=== PATIENT | female | born 1980 | race Caucasian/White ===

== ENCOUNTER → 2017-05-26 | Outpatient (CLI) | payer OTHER | LOC: SLR 11:00 | PROVIDERS: ATTEND Specialist | DX: G47.30 Sleep apnea, unspecified (principal); E66.9 Obesity, unspecified | CPT/HCPCS: 95810 ==

== ENCOUNTER 2017-06-18 11:00 | Outpatient (CLI) | payer OTHER | END 2017-06-18 11:01 | disposition home or self-care (01) | LOC: SLR 11:00 | PROVIDERS: ATTEND Specialist | DX: G47.33 Obstructive sleep apnea (adult) (pediatric) (principal); E66.9 Obesity, unspecified | CPT/HCPCS: 95811 ==

== ENCOUNTER 2017-08-13 06:10 | Day surgery (SDC) | payer OTHER ==
[2017-08-13] MEDS ORDERED: WATER FOR IRRIG STERILE IR ONE (07:19)
[2017-08-13] MEDS ORDERED: HURRICAINE ONE 20% TOPICAL SPRAY MM ×2 (07:21→08:13)
--- NOTE | 2017-08-13 07:37 | Anesthesia Consultation ---
Anesthesia Consult and Med Hx Date of service: 08/13/17 - Airway Anesthetic Teeth Evaluation: Good ROM Head & Neck: Adequate Mental/Hyoid Distance: Adequate Mallampati Class: Class I Intubation Access Assessment: Good - Pulmonary Exam CTA: Yes - Cardiac Exam Cardiac Exam: RRR - Pre-Operative Health Status ASA Pre-Surgery Classification: ASA3 Proposed Anesthetic Plan: MAC - Pulmonary Hx Smoking: Yes (Quit 2007 ) Hx Asthma: Yes (Last inhaler use 1 month ago ) Hx Sleep Apnea: Yes (CPAP) - Central Nervous System Hx Back Pain: Yes - Other Systems Hx Obesity: Yes
--- NOTE | 2017-08-13 07:37 | Anesthesia Day of Surgery ---
Anesthesia Day of Surgery - Day of Surgery Patient Examined: Yes Patient H&P Reviewed: Yes Patient is NPO: Yes
[2017-08-13] MEDS ORDERED: DIPRIVAN 10 MG/ML IV ONE (07:40)
[2017-08-13] MEDS ORDERED: NACL 0.9% 1000 ML 1,000 ML IV SCH (08:00)
--- NOTE | 2017-08-13 08:03 | Operative Report ---
Operative Report Operative Report: OPERATIVE REPORT - EGD DATE 08/13/17 SURGERY: Upper endoscopy. SURGEON: Ashley Morris M.D. [employer] ACCESS MANAGEMENT ARCHITECT: Samaria Gilliland DO PRE OP DX: dyspepsia POST OP DX: dyspepsia TYPE OF ANESTHESIA: MAC. ESTIMATED BLOOD LOSS: None. COMPLICATIONS: None. SPECIMENS REMOVED: None. FINDINGS: 1. intact michelle fundoplication wrap INDICATIONS:INDICATION FOR PROCEDURE: Patient is a 37-year-old female with a long history of morbid obesity. She is planned to have a weight loss procedure and is here for preoperative planning EGD. PROCEDURE DETAILS: After consent was reviewed, patient was taken back to the operating room where patient was placed in the left lateral decubitus position and a bite block was placed in the mouth. After a time-out was called, MAC anesthesia was initiated. I then passed the endoscope into her oropharynx, into her esophagus, visualized the entire esophagus, which was all within normal limits. I then visualized the stomach and the first portion of the duodenum and there were no abnormalities I could clearly visualize. I then retroflexed the scope in the stomach and visualized fundus of the stomach. The previous michelle fundoplication wrap was intact. no hiatal hernia could be visualized. I then desufflated the stomach and removed the endoscope. Patient tolerated procedure well and was transferred to recovery room in good and stable condition.
--- NOTE | 2017-08-13 08:05 | Discharge Summary ---
Providers - Providers Date of discharge: 08/13/17 Attending physician: UZIEL MARTÍNEZ Primary care physician: SYLVIA HOLLOWAY Hospitalization Condition: Good Procedures: egd Hospital course: pt had uneventful egd as part of pre-op planning for up coming bariatric surgery Disposition: DC-01 TO HOME OR SELFCARE Core Measure Documentation - Palliative Care Palliative Care/ Comfort Measures: Not Applicable - Core Measures Any of the following diagnoses?: none Exam - Physical Exam Narrative exam: unchanged from pre-op - Constitutional Vitals: Temp Pulse Resp BP Pulse Ox 97.8 F 77 18 122/81 96 08/13/17 07:20 08/13/17 07:20 08/13/17 07:20 08/13/17 07:20 08/13/17 07:20 Plan Activity: no restrictions Weight Bearing Status: Weight Bear as Tolerated Diet: regular Follow up with: SYLVIA HOLLOWAY MD [Primary Care Provider] - 7 Days
[2017-08-13 08:54] VITALS: BP 121/82
--- NOTE | 2017-08-13 14:22 | Post Anesthesia Evaluation ---
- Post Anesthesia Evaluation Patient Participated: Yes Airway Patent: Yes Stable Respiratory Function: Yes Nausea/Vomiting: No Temp > 96.8F: Yes Pain Manageable: Yes Adequeate Hydration: Yes Anesthesia Complications: No
== END 2017-08-13 06:11 | disposition home or self-care (01) ==
LOC: GIO 06:10
PROVIDERS: ATTEND Surgery
DX: K21.9 Gastro-esophageal reflux disease without esophagitis (principal); E66.01 Morbid (severe) obesity due to excess calories; J45.909 Unspecified asthma, uncomplicated; G47.30 Sleep apnea, unspecified; F32.9 Major depressive disorder, single episode, unspecified; F41.9 Anxiety disorder, unspecified; Z68.43 Body mass index [BMI] 50.0-59.9, adult; Z98.890 Other specified postprocedural states; Z87.891 Personal history of nicotine dependence; Z99.89 Dependence on other enabling machines and devices
CPT/HCPCS: 81025; J2704; J7030

== ENCOUNTER 2017-08-24 05:50 | Inpatient (IN) | payer OTHER ==
[2017-08-24] MEDS ORDERED: NACL BACTERIOSTATIC INFILTRATI ONE (06:41)
[2017-08-24] MEDS ORDERED: NACL 0.9% 1000 ML 1,000 ML ONE (06:55)
--- NOTE | 2017-08-24 06:58 | Anesthesia Day of Surgery ---
Anesthesia Day of Surgery - Day of Surgery Patient Examined: Yes Patient H&P Reviewed: Yes Patient is NPO: Yes Beta Blockers: No
[2017-08-24] MEDS ORDERED: VERSED IV NR (07:00)
[2017-08-24] MEDS ORDERED: PEPCID IV NR (07:00)
[2017-08-24] MEDS ORDERED: MARCAINE-EPI 0.5%-1:200,000 INFILTRATI ONE (07:09)
[2017-08-24] MEDS ORDERED: XYLOCAINE 1% 20 mL ONE (07:09)
[2017-08-24] MEDS ORDERED: WATER FOR IRRIG STERILE IR ONE ×2 (07:28→07:57)
[2017-08-24] MEDS ORDERED: NACL 0.9% IR ONE ×2 (07:28)
[2017-08-24] MEDS ORDERED: DIPRIVAN 10 MG/ML IV ONE ×2 (07:37)
[2017-08-24] MEDS ORDERED: SUBLIMAZE ONE (07:54)
[2017-08-24] MEDS ORDERED: NACL 0.9% 1000 ML 1,000 ML IV SCH (08:00)
[2017-08-24] MEDS ORDERED: TRANSDERM-SCOP TD NR (08:00)
[2017-08-24] MEDS ORDERED: ANCEF/STERILE WATER 2 GM/20 ML IV NR (08:00)
[2017-08-24] MEDS ORDERED: FLAGYL 500 MG/100 ML 500 MG/100 ML BAG IV NR (08:00)
[2017-08-24] MEDS ORDERED: LOVENOX SUB-Q NR (08:00)
[2017-08-24] MEDS ORDERED: MARCAINE-EPI/PF 0.5%-1:200,000 INFILTRATI ONE (08:07)
[2017-08-24] MEDS ORDERED: XYLOCAINE 1% 20 mL INFILTRATI ONE ×2 (08:07)
[2017-08-24] MEDS ORDERED: XYLOCAINE MPF 2% ONE (10:19)
[2017-08-24] MEDS ORDERED: ZOFRAN ONE (10:20)
[2017-08-24] MEDS ORDERED: QUELICIN ONE (10:20)
[2017-08-24] MEDS ORDERED: ZEMURON IV ONE (10:20)
[2017-08-24] MEDS ORDERED: NEO SYNEPHRINE/NS Syringe(OR USE) IV ONE (10:21)
[2017-08-24] MEDS ORDERED: ROBINUL ONE (10:21)
[2017-08-24] MEDS ORDERED: NEOSTIGMINE ONE (10:21)
[2017-08-24] MEDS ORDERED: VISTARIL PO PRN (11:20)
[2017-08-24] MEDS ORDERED: DESYREL PO PRN (11:20)
[2017-08-24] MEDS ORDERED: DILAUDID ONE (11:35)
[2017-08-24] MEDS: DILAUDID IV PRN ×4 (11:35→12:05)
[2017-08-24] MEDS ORDERED: DILAUDID IV PRN (11:36)
--- NOTE | 2017-08-24 11:39 | Operative Report ---
Operative Report Operative Report: POSTOPERATIVE DIAGNOSES: Morbid obesity PROCEDURES PERFORMED: 1. Taken down of previous Michelle fundoplication 2.Laparoscopic gastric bypass. 3. EGD. ANESTHESIA: General endotracheal tube intubation. SPECIMENS: portion of stomach ESTIMATED BLOOD LOSS: Less than 10 mL. FINDINGS: Michelle fundoplication . COMPLICATIONS: None. INDICATION: Ms Medellin is a 37-year-old female with history of morbid obesity. She has a hx of previous laparoscopic michelle fundoplication for reflux. She expressed the wanting a gastric bypass for continued reflux like symptoms and weight gain. She signed informed consent and expressed understanding of risks and benefits. DESCRIPTION OF PROCEDURE: Patient was brought to the OR suite, laid in supine position. Bilateral lower extremity SCDs were placed. General anesthesia was induced via successful endotracheal tube intubation. Patient's abdomen was prepped and draped in sterile fashion. Veress needle was inserted with ease into left upper quadrant. Insufflation to 12-15 was completed. Next using Optiview technique, a 10-mm trocar was placed into the abdominal cavity under direct vision. There was noted to be no gross injury to any intraabdominal structures. at the site of the veress needle insertion and the veress needle was removed. 5 working trocars were placed under direct visualization, 12 mm in the right mid abdomen mid clavicular line and four 5-mm trocars in the right upper quadrant, and 5m trocars in the epigastric, left upper quadrant and left mid abdomen. At this time, the patient was placed in steep reverse Trendelenburg position. A liver retractor was placed through the epigastric port to elevate the left lateral lobe of the liver. An Anterior 360 wrap was noted below the hiatas. This area was dissected free from any adhesions. A EGD scope was inserted in the stomach to delineate the borders for the stomach. Once a dissection plane was visualized between the stomach the portion of the stomach that was wrapped, a blue load stapler was used to transect it. Lysis of further adhesions recreated the proper anatomy of the stomach. Next, the Bilateral crura were dissected to show a hiatal hernia containing fat. The fat was reduced. The GE junction was below the hiatus at this time. The EGD scope was removed. Nothing in the stomach. Next a small gastric pouch was formed via careful dissection and blue staple loads. After the pouch was formed the Body of the remnant stomach did not have any blood supply due to the previous michelle fundoplication. The body of the remnant stomach was then removed via a blue load stapler. The patient was taken out of steep reverse trendelenburg. At this time, the ligament of Treitz identified and followed down approximately 30 cm and the jejunum was transected. The distal segment of jejunum was then traced for approximately 75 cm and a stable [id number] jejunojejunostomy was performed. The common enterotomy was closed with 2 firings of the endoscopic stapler. The mesenteric defect was closed with running Surgidac suture. This anastomosis was found to be patent without kink, obstruction or bleeding. Prior to bringing the sandor limb up to the pouch, the omentem was split via the ligasure device to ensure a tension free path for the sandor limb to the pouch. The Sandor limb was then brought in an antegastric antecolic fashion and secured with 2 stay sutures to the gastric pouch. After this, the enterotomies were made with Harmonic scalpel, and a [id number] stapled gastrojejunostomy was performed with a mechanical stapler. After this, a 2-layer running closure using Polysorb suture were done, the first being mucosal approximation prior to completion of the first layer. Next an EGD scope beyond the anastomosis to act as a stent. The first layer was completed, the second was then performed. After this, the EGD was retracted slightly. A bowel clamp was placed in a proximal Sandor limb. The anastomosis was submerged under saline. Via intraluminal EGD insufflation, there was noted be no bubbles in the saline indicating an airtight anastomosis. There was noted to be no obstruction or bleeding intraluminally in the pouch or the anastomosis. Next the hiatus was approximated with a surgidac suture. At this time, the scope was removed. The saline was aspirated. Tiseel was placed over the anastomosis. All trocars were removed under direct visualization and the abdomen was then desufflated. The skin incisions were closed with 4-0 Monocryl followed by Dermabond dressings. Patient was awoken and taken to recovery in stable condition. All counts were correct.
[2017-08-24] MEDS ORDERED: MORPHINE IV PRN ×3 (13:47→14:05)
[2017-08-24] MEDS ORDERED: REGLAN IV PRN (13:47)
[2017-08-24] MEDS ORDERED: ANCEF/NS 1 GM/50 ML 1 GM/50 ML BAG IV SCH (13:47)
[2017-08-24] MEDS ORDERED: LACTATED RINGERS 1,000 ML IV SCH (13:47)
[2017-08-24] MEDS: TORADOL IV SCH ×2 (14:00→20:33)
[2017-08-24] MEDS ORDERED: APRESOLINE IV PRN (15:02)
[2017-08-24] MEDS: PROVENTIL IH SCH ×2 (16:04→20:25)
[2017-08-24] MEDS: FLAGYL 500 MG/100 ML 500 MG/100 ML BAG IV SCH ×2 (16:25→22:38)
[2017-08-24] MEDS: MORPHINE IV PRN ×2 (16:29→20:49)
[2017-08-24] MEDS: ceFAZolin 1 GM in NACL 0.9% 20 ML IV SCH (19:00)
[2017-08-24] MEDS: ZOFRAN IV PRN (20:10)
[2017-08-24] MEDS: MYLICON PO PRN (20:11)
[2017-08-24] MEDS: NORMOSOL-R PH 7.4 1,000 ML IV SCH (20:33)
[2017-08-24] MEDS: NEURONTIN PO SCH (22:26)
[2017-08-25] MEDS: PROVENTIL IH SCH ×5 (00:47→19:27)
[2017-08-25] MEDS: MORPHINE IV PRN ×3 (02:14→19:25)
[2017-08-25] MEDS: ceFAZolin 1 GM in NACL 0.9% 20 ML IV SCH (02:15)
[2017-08-25] MEDS: NORMOSOL-R PH 7.4 1,000 ML IV SCH ×3 (03:10→22:52)
[2017-08-25] MEDS: TORADOL IV SCH ×5 (03:13→21:18)
[2017-08-25 05:20] LABS: Basophils % (Auto) 0.4 % (0.0-1.8); Eosinophils % (Auto) 0.2 % (0.0-4.3); Hematocrit 38.4 % (30.3-42.9); Lymphocytes # (Auto) 1.7 K/mm3 (1.2-5.4); Lymphocytes % (Auto) 17.7 % (13.4-35.0); Mean Corpuscular HGB Conc 34 % (30-34); Mean Corpuscular Hemoglobin 32 pg (28-32); Mean Corpuscular Volume 94 fl (79-97); Monocytes # (Auto) 0.7 K/mm3 (0.0-0.8); Monocytes % (Auto) 7.5 % (0.0-7.3); Platelet Count 255 K/mm3 (140-440); Red Blood Count 4.07 M/mm3 (3.65-5.03); Red Cell Distribution Width 13.5 % (13.2-15.2)
[2017-08-25] MEDS: MYLICON PO PRN ×2 (05:31→11:27)
[2017-08-25 05:47] LABS: Alanine Aminotransferase 59 units/L (7-56); Albumin 3.7 g/dL (3.9-5); BUN/Creatinine Ratio 7; Blood Urea Nitrogen 4 mg/dL (7-17); Calcium 8.4 mg/dL (8.4-10.2); Hemolysis Index 0
[2017-08-25] MEDS: FLAGYL 500 MG/100 ML 500 MG/100 ML BAG IV SCH (06:57)
[2017-08-25] MEDS: PROzac PO SCH (10:03)
[2017-08-25] MEDS: LOVENOX SUB-Q SCH (10:03)
[2017-08-25] MEDS: NORCO PO PRN ×2 (10:03→13:48)
[2017-08-25] MEDS: BENADRYL IV PRN ×2 (15:32→22:51)
--- NOTE | 2017-08-25 16:41 | Progress Note ---
Assessment and Plan 37 y.o. F s/p laparoscopic michelle takedown conversion to a gastric bypass pod 1 Pain control: pain not well controlled. continue standing toradol, prn morphine and prn PO lortab elixer. -encouraged pt to ask for meds when her pain is at a 5/10 Continue nausea control Continue yessy I diet encourage ambulation and IS Continue home meds GI proph DVT proph Will reassess in am for possible dc once pain control has improved. f/u am labs Subjective Narrative: Pt tolerating liquids. She had 7/10 abdominal pain epigastric area earlier today. The pain is improving now after receiving po meds and IV meds. She denies nausea or vomiting. She ambulated today. and mother at beside. She started to have hives on her arms earlier today but benadryl helped. She denies itching. Objective Vital Signs - 12hr 08/25/17 08/25/17 08/25/17 04:44 07:51 08:14 Temperature 99.2 F 98.4 F Pulse Rate 83 87 Pulse Rate [ 82 Anterior Bilateral Throughout] Respiratory 20 18 Rate Respiratory 17 Rate [Anterior Bilateral Throughout] Blood Pressure 114/67 122/69 O2 Sat by Pulse 94 92 Oximetry 08/25/17 08/25/17 08/25/17 08:15 10:55 13:26 Temperature 99.0 F Pulse Rate 92 H Pulse Rate [ 85 Anterior Bilateral Throughout] Respiratory 18 Rate Respiratory 19 Rate [Anterior Bilateral Throughout] Blood Pressure 114/65 O2 Sat by Pulse 94 97 93 Oximetry 08/25/17 08/25/17 14:11 14:12 Temperature Pulse Rate Pulse Rate [ 84 85 Anterior Bilateral Throughout] Respiratory Rate Respiratory 19 19 Rate [Anterior Bilateral Throughout] Blood Pressure O2 Sat by Pulse Oximetry - General physical appearance well developed, well nourished, no distress - Respiratory normal expansion, normal respiratory effort - Abdomen soft, tender (at incision sites. ), not guarding, not rigid, other (incisions cdi) - Neurologic normal coordination, normal sensation - Musculoskeletal normal posture - Psychiatric oriented to time, oriented to person, oriented to place, speech is normal - Labs 08/25/17 05:03 08/25/17 05:03 Diabetes panel 08/25/17 Range/Units 05:03 Sodium 142 (137-145) mmol/L Potassium 3.4 L (3.6-5.0) mmol/L Chloride 103.2 (98-107) mmol/L Carbon Dioxide 24 (22-30) mmol/L BUN 4 L (7-17) mg/dL Creatinine 0.6 L (0.7-1.2) mg/dL Glucose 95 (65-100) mg/dL Calcium 8.4 (8.4-10.2) mg/dL AST 43 H (5-40) units/L ALT 59 H (7-56) units/L Alkaline Phosphatase 58 (35-129) units/L Total Protein 6.5 (6.3-8.2) g/dL Albumin 3.7 L (3.9-5) g/dL Calcium panel 08/25/17 Range/Units 05:03 Calcium 8.4 (8.4-10.2) mg/dL Albumin 3.7 L (3.9-5) g/dL Pituitary panel 08/25/17 Range/Units 05:03 Sodium 142 (137-145) mmol/L Potassium 3.4 L (3.6-5.0) mmol/L Chloride 103.2 (98-107) mmol/L Carbon Dioxide 24 (22-30) mmol/L BUN 4 L (7-17) mg/dL Creatinine 0.6 L (0.7-1.2) mg/dL Glucose 95 (65-100) mg/dL Calcium 8.4 (8.4-10.2) mg/dL Adrenal panel 08/25/17 Range/Units 05:03 Sodium 142 (137-145) mmol/L Potassium 3.4 L (3.6-5.0) mmol/L Chloride 103.2 (98-107) mmol/L Carbon Dioxide 24 (22-30) mmol/L BUN 4 L (7-17) mg/dL Creatinine 0.6 L (0.7-1.2) mg/dL Glucose 95 (65-100) mg/dL Calcium 8.4 (8.4-10.2) mg/dL Total Bilirubin 0.50 (0.1-1.2) mg/dL AST 43 H (5-40) units/L ALT 59 H (7-56) units/L Alkaline Phosphatase 58 (35-129) units/L Total Protein 6.5 (6.3-8.2) g/dL Albumin 3.7 L (3.9-5) g/dL
[2017-08-25] MEDS: NEURONTIN PO SCH (22:51)
[2017-08-26] MEDS: NORCO PO PRN ×3 (00:21→15:33)
[2017-08-26] MEDS: PROVENTIL IH SCH ×3 (02:20→15:20)
[2017-08-26] MEDS: TORADOL IV SCH ×2 (02:55→07:48)
[2017-08-26 06:03] LABS: Basophils % (Auto) 0.4 % (0.0-1.8); Eosinophils % (Auto) 0.3 % (0.0-4.3); Hematocrit 36.6 % (30.3-42.9); Hemoglobin 12.7 gm/dl (10.1-14.3); Lymphocytes # (Auto) 0.8 K/mm3 (1.2-5.4); Lymphocytes % (Auto) 14.3 % (13.4-35.0); Mean Corpuscular HGB Conc 35 % (30-34); Mean Corpuscular Hemoglobin 32 pg (28-32); Mean Corpuscular Volume 93 fl (79-97); Monocytes # (Auto) 0.4 K/mm3 (0.0-0.8); Monocytes % (Auto) 7.2 % (0.0-7.3); Platelet Count 181 K/mm3 (140-440); Red Blood Count 3.95 M/mm3 (3.65-5.03); Red Cell Distribution Width 13.5 % (13.2-15.2)
[2017-08-26 06:32] LABS: Alanine Aminotransferase 38 units/L (7-56); Albumin 3.2 g/dL (3.9-5); BUN/Creatinine Ratio 7; Blood Urea Nitrogen 4 mg/dL (7-17); Calcium 8.2 mg/dL (8.4-10.2); Hemolysis Index 2
[2017-08-26] MEDS: NORMOSOL-R PH 7.4 1,000 ML IV SCH ×2 (07:50→20:03)
[2017-08-26] MEDS: PROzac PO SCH (10:47)
[2017-08-26] MEDS: LOVENOX SUB-Q SCH (12:00)
[2017-08-26] MEDS: MORPHINE IV PRN ×2 (12:43→21:14)
--- NOTE | 2017-08-26 19:12 | Progress Note ---
Assessment and Plan 37 y.o. F s/p laparoscopic michelle takedown conversion to a gastric bypass pod 2 Pain control: pain not well controlled. continue standing toradol, prn morphine and prn PO lortab elixer. -encouraged pt to ask for meds when her pain is at a 5/10 Continue nausea control Continue yessy I diet - no protein mix due to possible reaction encourage ambulation and IS Continue home meds GI proph DVT proph Will reassess in am for possible dc once pain control has improved. f/u am labs Subjective Narrative: Pt feeling better today but continues to have epigastric pain. The pain medication helps the pain. She is ambulating. Denies nausea or vomiting. Patient and think the hives are due to the protein mix. Objective Vital Signs - 12hr 08/26/17 08/26/17 08/26/17 08:10 08:43 08:44 Temperature 98.8 F Pulse Rate 99 H 95 H Pulse Rate [ 93 H Anterior Bilateral Throughout] Respiratory 18 Rate Respiratory 18 Rate [Anterior Bilateral Throughout] Blood Pressure 106/63 O2 Sat by Pulse 96 96 Oximetry 08/26/17 08/26/17 08/26/17 12:25 14:59 15:10 Temperature 98.8 F Pulse Rate 94 H Pulse Rate [ 84 88 Anterior Bilateral Throughout] Respiratory 18 Rate Respiratory 20 20 Rate [Anterior Bilateral Throughout] Blood Pressure 101/67 O2 Sat by Pulse 97 Oximetry 08/26/17 08/26/17 15:39 15:40 Temperature 98.1 F Pulse Rate 98 H 100 H Pulse Rate [ Anterior Bilateral Throughout] Respiratory 18 Rate Respiratory Rate [Anterior Bilateral Throughout] Blood Pressure 95/61 O2 Sat by Pulse 98 98 Oximetry - General physical appearance well developed, well nourished, no distress - Respiratory normal expansion, normal respiratory effort - Abdomen soft, other (nondistended soft, no reboudn no guarding. tender at incision sites and at epigastric area. ) - Neurologic normal coordination, normal sensation - Musculoskeletal normal posture - Psychiatric oriented to time, oriented to person, oriented to place - Labs 08/26/17 05:27 08/26/17 05:27 Diabetes panel 08/26/17 Range/Units 05:27 Sodium 139 (137-145) mmol/L Potassium 3.9 (3.6-5.0) mmol/L Chloride 101.4 (98-107) mmol/L Carbon Dioxide 25 (22-30) mmol/L BUN 4 L (7-17) mg/dL Creatinine 0.6 L (0.7-1.2) mg/dL Glucose 109 H (65-100) mg/dL Calcium 8.2 L (8.4-10.2) mg/dL AST 23 (5-40) units/L ALT 38 (7-56) units/L Alkaline Phosphatase 50 (35-129) units/L Total Protein 6.0 L (6.3-8.2) g/dL Albumin 3.2 L (3.9-5) g/dL Calcium panel 08/26/17 Range/Units 05:27 Calcium 8.2 L (8.4-10.2) mg/dL Albumin 3.2 L (3.9-5) g/dL Pituitary panel 08/26/17 Range/Units 05:27 Sodium 139 (137-145) mmol/L Potassium 3.9 (3.6-5.0) mmol/L Chloride 101.4 (98-107) mmol/L Carbon Dioxide 25 (22-30) mmol/L BUN 4 L (7-17) mg/dL Creatinine 0.6 L (0.7-1.2) mg/dL Glucose 109 H (65-100) mg/dL Calcium 8.2 L (8.4-10.2) mg/dL Adrenal panel 08/26/17 Range/Units 05:27 Sodium 139 (137-145) mmol/L Potassium 3.9 (3.6-5.0) mmol/L Chloride 101.4 (98-107) mmol/L Carbon Dioxide 25 (22-30) mmol/L BUN 4 L (7-17) mg/dL Creatinine 0.6 L (0.7-1.2) mg/dL Glucose 109 H (65-100) mg/dL Calcium 8.2 L (8.4-10.2) mg/dL Total Bilirubin 0.60 (0.1-1.2) mg/dL AST 23 (5-40) units/L ALT 38 (7-56) units/L Alkaline Phosphatase 50 (35-129) units/L Total Protein 6.0 L (6.3-8.2) g/dL Albumin 3.2 L (3.9-5) g/dL
[2017-08-26] MEDS: BENADRYL IV PRN (19:19)
[2017-08-26] MEDS: NEURONTIN PO SCH (21:15)
[2017-08-27] MEDS: NORMOSOL-R PH 7.4 1,000 ML IV SCH ×2 (00:02→06:38)
[2017-08-27 05:17] LABS: Basophils % (Auto) 0.5 % (0.0-1.8); Eosinophils # (Auto) 0.1 K/mm3 (0.0-0.4); Eosinophils % (Auto) 1.7 % (0.0-4.3); Hematocrit 34.7 % (30.3-42.9); Hemoglobin 11.7 gm/dl (10.1-14.3); Lymphocytes # (Auto) 1.3 K/mm3 (1.2-5.4); Lymphocytes % (Auto) 19.2 % (13.4-35.0); Mean Corpuscular HGB Conc 34 % (30-34); Mean Corpuscular Hemoglobin 32 pg (28-32); Mean Corpuscular Volume 94 fl (79-97); Monocytes # (Auto) 0.3 K/mm3 (0.0-0.8); Monocytes % (Auto) 5.1 % (0.0-7.3); Platelet Count 189 K/mm3 (140-440); Red Blood Count 3.69 M/mm3 (3.65-5.03); Red Cell Distribution Width 13.6 % (13.2-15.2)
[2017-08-27 05:34] LABS: Alanine Aminotransferase 26 units/L (7-56); Albumin 3.1 g/dL (3.9-5); BUN/Creatinine Ratio 8; Blood Urea Nitrogen 4 mg/dL (7-17); Calcium 7.9 mg/dL (8.4-10.2); Hemolysis Index 0
[2017-08-27] MEDS: NORCO PO PRN ×3 (05:50→13:30)
[2017-08-27] MEDS: ZOFRAN IV PRN ×2 (06:42→13:30)
[2017-08-27] MEDS: MORPHINE IV PRN (07:51)
[2017-08-27] MEDS ORDERED: PROVENTIL IH SCH (08:00)
[2017-08-27] MEDS: LOVENOX SUB-Q SCH (09:04)
[2017-08-27] MEDS: PROzac PO SCH (09:04)
--- NOTE | 2017-08-27 09:50 | Progress Note ---
Assessment and Plan 37 y.o. F s/p laparoscopic michelle takedown conversion to a gastric bypass pod 3 Pain control: pain imroved from yesterday. continue standing toradol, prn morphine and prn PO lortab elixer. -encouraged pt to ask for meds when her pain is at a 5/10 Continue nausea control Continue yessy I diet - no protein mix due to possible reaction encourage ambulation and IS Continue home meds GI proph DVT proph Subjective Date of service: 08/27/17 Patient Reports: Positive: pain is less, tolerating liquids well, flatus, no bowel movement Objective Vital Signs - 12hr 08/26/17 08/26/17 08/26/17 21:55 22:00 23:39 Temperature 99.2 F Pulse Rate 91 H Pulse Rate [ 91 H Anterior Bilateral Throughout] Respiratory 20 Rate Respiratory 20 Rate [Anterior Bilateral Throughout] Blood Pressure 102/59 O2 Sat by Pulse 99 95 Oximetry 08/26/17 08/27/17 08/27/17 23:40 05:08 07:57 Temperature 99.2 F 97.6 F Pulse Rate 88 88 81 Pulse Rate [ Anterior Bilateral Throughout] Respiratory 20 18 Rate Respiratory Rate [Anterior Bilateral Throughout] Blood Pressure 100/64 105/60 O2 Sat by Pulse 96 97 95 Oximetry 08/27/17 08:00 Temperature 98.5 F Pulse Rate Pulse Rate [ Anterior Bilateral Throughout] Respiratory 18 Rate Respiratory Rate [Anterior Bilateral Throughout] Blood Pressure 116/68 O2 Sat by Pulse Oximetry - General physical appearance well developed, well nourished, no distress - Respiratory normal expansion, normal respiratory effort - Abdomen soft, other (Soft, nondistended, no rebound, no guarding, tender at incision sites, mild tenderness to epigastric region) - Neurologic normal coordination, normal sensation - Musculoskeletal normal posture - Psychiatric oriented to time, oriented to person, oriented to place - Labs 08/27/17 04:30 08/27/17 04:30 Diabetes panel 08/27/17 Range/Units 04:30 Sodium 137 (137-145) mmol/L Potassium 3.5 L (3.6-5.0) mmol/L Chloride 98.3 (98-107) mmol/L Carbon Dioxide 25 (22-30) mmol/L BUN 4 L (7-17) mg/dL Creatinine 0.5 L (0.7-1.2) mg/dL Glucose 92 (65-100) mg/dL Calcium 7.9 L (8.4-10.2) mg/dL AST 16 (5-40) units/L ALT 26 (7-56) units/L Alkaline Phosphatase 50 (35-129) units/L Total Protein 5.8 L (6.3-8.2) g/dL Albumin 3.1 L (3.9-5) g/dL Calcium panel 08/27/17 Range/Units 04:30 Calcium 7.9 L (8.4-10.2) mg/dL Albumin 3.1 L (3.9-5) g/dL Pituitary panel 08/27/17 Range/Units 04:30 Sodium 137 (137-145) mmol/L Potassium 3.5 L (3.6-5.0) mmol/L Chloride 98.3 (98-107) mmol/L Carbon Dioxide 25 (22-30) mmol/L BUN 4 L (7-17) mg/dL Creatinine 0.5 L (0.7-1.2) mg/dL Glucose 92 (65-100) mg/dL Calcium 7.9 L (8.4-10.2) mg/dL Adrenal panel 08/27/17 Range/Units 04:30 Sodium 137 (137-145) mmol/L Potassium 3.5 L (3.6-5.0) mmol/L Chloride 98.3 (98-107) mmol/L Carbon Dioxide 25 (22-30) mmol/L BUN 4 L (7-17) mg/dL Creatinine 0.5 L (0.7-1.2) mg/dL Glucose 92 (65-100) mg/dL Calcium 7.9 L (8.4-10.2) mg/dL Total Bilirubin 0.40 (0.1-1.2) mg/dL AST 16 (5-40) units/L ALT 26 (7-56) units/L Alkaline Phosphatase 50 (35-129) units/L Total Protein 5.8 L (6.3-8.2) g/dL Albumin 3.1 L (3.9-5) g/dL
--- NOTE | 2017-08-27 10:17 | Discharge Summary ---
Providers - Providers Date of Admission: 08/24/17 05:50 Date of discharge: 08/27/17 Attending physician: UZIEL MARTÍNEZ Primary care physician: SYLVIA HOLLOWAY Hospitalization Reason for admission: observation after lap gastric bypass Condition: Good Procedures: laparoscopic takedown of michelle fundoplication, gastric bypass, and hiatal hernia repair Hospital course: Pt was admitted after an uneventful takedown of michelle fundoplication and gastric bypass. She was stable and afebrile throughout her hospital course but had some issues with pain control. She was tolerating her liquids well and ambulating on her own. She showed no clinical signs of leak or bleeding and was discharged home. She will follow up in the office in two weeks. Disposition: TO HOME OR SELFCARE Core Measure Documentation - Palliative Care Palliative Care/ Comfort Measures: Not Applicable - Core Measures Any of the following diagnoses?: none Exam - Constitutional Vitals: Temp Pulse Resp BP Pulse Ox 98.5 F 81 18 116/68 95 08/27/17 08:00 08/27/17 07:57 08/27/17 08:00 08/27/17 08:00 08/27/17 07:57 General appearance: Present: no acute distress, well-nourished, obese - EENT Eyes: Present: PERRL ENT: hearing intact - Neck Neck: Present: supple - Respiratory Respiratory effort: normal - Cardiovascular Rhythm: regular - Extremities Extremities: no ischemia - Abdominal General gastrointestinal: Present: soft, non-tender Female genitourinary: Present: deferred - Rectal Rectal Exam: deferred - Integumentary Integumentary: Present: warm, dry - Psychiatric Psychiatric: appropriate mood/affect Plan Activity: advance as tolerated Weight Bearing Status: Full Weight Bearing Diet: clear liquids Follow up with: SYLVIA HOLLOWAY MD [Primary Care Provider] - 7 Days
[2017-08-27 15:04] VITALS: BP 108/62
== END 2017-08-27 15:02 | disposition home or self-care (01) | DRG 327 ==
LOC: 3A 05:50 → 3B-SURG 11:35
PROVIDERS: ADMIT Surgery; ATTEND Surgery
PROC: 0D164ZA Bypass Stomach to Jejunum, Percutaneous Endoscopic Approach (ICD-10-PCS; principal; 2017-08-24)
PROC: 0DQ44ZZ Repair Esophagogastric Junction, Percutaneous Endoscopic Approach (ICD-10-PCS; 2017-08-24)
PROC: 0BQT4ZZ Repair Diaphragm, Percutaneous Endoscopic Approach (ICD-10-PCS; 2017-08-24)
PROC: 0DJ08ZZ Inspection of Upper Intestinal Tract, Via Natural or Artificial Opening Endoscopic (ICD-10-PCS; 2017-08-24)
DX: K44.9 Diaphragmatic hernia without obstruction or gangrene (principal); Z68.43 Body mass index [BMI] 50.0-59.9, adult; E66.01 Morbid (severe) obesity due to excess calories; K21.9 Gastro-esophageal reflux disease without esophagitis; F32.9 Major depressive disorder, single episode, unspecified; F51.04 Psychophysiologic insomnia; F41.9 Anxiety disorder, unspecified; G47.30 Sleep apnea, unspecified; N39.3 Stress incontinence (female) (male); Z83.3 Family history of diabetes mellitus
CPT/HCPCS: 36415; 80053; 85025; 88307; 94640; 94760; A4217; C9250; J0330; J0690; J1170; J1200; J1650; J1885; J2250; J2270; J2370; J2405; J2704; J2710; J2765; J3010; J7030; J7120; Q0177